=== PATIENT | female | born 1955 | race African-American/Black ===

== ENCOUNTER 2016-03-19 11:36 | Emergency (ER) | payer BC | END 2016-03-19 22:26 | disposition home or self-care (01) | LOC: D.ER 11:36 | DX: S93.401A Sprain of unspecified ligament of right ankle, initial encounter (principal); W19.XXXA Unspecified fall, initial encounter; Y93.79 Activity, other specified sports and athletics; Y92.019 Unspecified place in single-family (private) house as the place of occurrence of the external cause ==